=== PATIENT | female | born 1935 | race Caucasian/White ===

== ENCOUNTER 2024-02-25 10:21 | Outpatient (CLI) | payer MEDICARE | END 2024-02-25 10:22 | disposition home or self-care (01) | LOC: CSHRAD 10:21 | PROVIDERS: ATTEND Family Medicine | DX: Z01.818 Encounter for other preprocedural examination (principal); Z95.0 Presence of cardiac pacemaker; Z95.818 Presence of other cardiac implants and grafts; M54.12 Radiculopathy, cervical region; M48.02 Spinal stenosis, cervical region; M54.16 Radiculopathy, lumbar region; M48.061 Spinal stenosis, lumbar region without neurogenic claudication | CPT/HCPCS: 71045 ==